=== PATIENT | female | born 1990 | race Caucasian/White ===

== ENCOUNTER 2025-07-16 16:42 | Emergency (ER) | payer MEDICAID ==
[~2025-07-16] VITALS: Ht 152.4 cm; Wt 91.0 kg
[2025-07-16 16:52] VITALS: O2SAT 99
[2025-07-16 17:37] LABS: BASOPHILS % 0.3 % (0.0-2.0); EOSINOPHILS % 0.0 % (0.0-5.0); HEMATOCRIT. 41.5 % (36.0-48.0); HEMOGLOBIN. 13.3 g/dL (12.0-16.0); LYMPHOCYTES % 8.7 % (20.0-50.0); MEAN PLATELET VOLUME 7.2 fl (7.4-10.4); MONOCYTES % 4.2 % (2.0-8.0); NEUTROPHILS % 86.8 % (40.0-76.0); PLATELET 435 x1000/uL (130-400); RED BLOOD CELL COUNT 6.11 mill/uL (4.2-5.4); RED CELL DISTRIBUTION WIDTH 17.1 % (11.6-14.6)
[2025-07-16 17:38] LABS: ADD RBC MORPHOLOGY YES
[2025-07-16 17:49] LABS: CREATININE 0.6 mg/dL (0.6-1.0); UREA NITROGEN BLOOD 7 mg/dL (9-23)
[2025-07-16 17:50] LABS: TROPONIN I HIGH SENSITIVITY < 4 ng/L (3.0-34)
[2025-07-16 17:51] LABS: ASPARTATE AMINOTRANSFERASE 215 IU/L (<34); BILIRUBIN DIRECT 0.8 mg/dL (<=3.0); BILIRUBIN TOTAL 2.0 mg/dL (0.1-1.0); PROTEIN TOTAL 7.5 g/dL (6.0-8.3)
[2025-07-16 17:58] LABS: HCG SCREEN NEGATIVE
[2025-07-16 18:12] LABS: CLARITY URINE CLEAR (CLEAR); COLOR URINE DARK YELLOW (YELLOW); GLUCOSE URINE NEGATIVE (NEGATIVE); KETONES URINE NEGATIVE (NEGATIVE); LEUKOCYTE ESTERASE URINE 1+ (NEGATIVE); NITRITE URINE NEGATIVE (NEGATIVE); OCCULT BLOOD URINE 3+ (NEGATIVE); PH URINE 7.0 (4.5-8.0); PROTEIN URINE TRACE (NEGATIVE); SPECIFIC GRAVITY URINE 1.020 (1.005-1.030); UROBILINOGEN URINE 1.0 E.U./dL (0.2-1.0)
[2025-07-16] MEDS: SODIUM CHLORIDE 0.9% 1,000 ML IV ONE (18:14)
[2025-07-16] MEDS: ONDANSETRON HCL 4MG/2ML INJ IV ONE (18:15)
[2025-07-16] MEDS: KETOROLAC 15MG/ML VIAL IV ONE (18:15)
[2025-07-16 18:45] LABS: SQUAMOUS EPITHELIAL CELL URINE 3+ /lpf (RARE/1+)
[2025-07-16 18:46] LABS: BACTERIA URINE 1+; RBC URINE 25-50 /hpf (0-2); WBC URINE 25-50 /hpf (0-2)
[2025-07-16 19:35] LABS: TROPONIN I HIGH SENSITIVITY < 4 ng/L (3.0-34)
[2025-07-16] MEDS: METOCLOPRAMIDE HCL 10MG/2ML VIAL IV ONE (20:11)
[2025-07-16] MEDS: ACETAMINOPHEN 325MG TABLET PO ONE (20:11)
[2025-07-16 21:43] LABS: PLATELET ESTIMATE INCREASED
[2025-07-17] MEDS ORDERED: CEFP200T13 MT (00:37)
[2025-07-17 00:53] VITALS: BP 112/66; PULSE 79; RESP 18; TEMP 36.9; O2SAT 98
== END 2025-07-17 00:54 | disposition home or self-care (01) ==
LOC: ER 16:42
DX: K80.20 Calculus of gallbladder without cholecystitis without obstruction (principal); N39.0 Urinary tract infection, site not specified; R51.9 Headache, unspecified; R11.2 Nausea with vomiting, unspecified; J45.909 Unspecified asthma, uncomplicated
CPT/HCPCS: 99285; 96374; 96361; 70450; 76705; 96375; 80076; 80048; 81003; 81025; 84703; 83690; 85025; 87086; 84484; 36415; 93005; J1885; J2765; J2405; J7030

== ENCOUNTER 2025-08-11 01:33 | Emergency (ER) | payer MEDICAID ==
[~2025-08-11] VITALS: Ht 147.3 cm; Wt 94.9 kg
[~2025-08-11 01:33] MED LIST: CEFP200T13 MT
[2025-08-11 01:58] VITALS: O2SAT 99
[2025-08-11] MEDS: ACETAMINOPHEN 500MG TABLET PO ONE (02:30)
[2025-08-11] MEDS: ONDANSETRON 4MG ODT PO ONE (02:30)
[2025-08-11 03:46] LABS: BASOPHILS % 0.2 % (0.0-2.0); EOSINOPHILS % 0.9 % (0.0-5.0); HEMATOCRIT. 42.1 % (36.0-48.0); HEMOGLOBIN. 13.5 g/dL (12.0-16.0); LYMPHOCYTES % 9.5 % (20.0-50.0); MEAN PLATELET VOLUME 7.1 fl (7.4-10.4); MONOCYTES % 4.5 % (2.0-8.0); NEUTROPHILS % 84.9 % (40.0-76.0); PLATELET 417 x1000/uL (130-400); RED BLOOD CELL COUNT 6.24 mill/uL (4.2-5.4); RED CELL DISTRIBUTION WIDTH 17.6 % (11.6-14.6)
[2025-08-11 03:49] LABS: ADD RBC MORPHOLOGY YES
[2025-08-11 03:54] LABS: HCG SCREEN NEGATIVE
[2025-08-11 03:59] LABS: PLATELET ESTIMATE INCREASED
[2025-08-11 04:05] LABS: CREATININE 0.6 mg/dL (0.6-1.0)
[2025-08-11 04:06] LABS: PROTEIN TOTAL 7.6 g/dL (6.0-8.3); UREA NITROGEN BLOOD 11 mg/dL (9-23)
[2025-08-11 04:07] LABS: ASPARTATE AMINOTRANSFERASE 26 IU/L (<34); BILIRUBIN DIRECT 0.4 mg/dL (<=3.0)
[2025-08-11 04:08] LABS: BILIRUBIN TOTAL 1.4 mg/dL (0.1-1.0)
[2025-08-11] MEDS ORDERED: PIPERACILLIN/TAZO 3.375G/50ML 50 ML IV ONE (04:30)
[2025-08-11] MEDS: SODIUM CHLORIDE 0.9% (SEPSIS BOLUS) IV ONE (04:42)
[2025-08-11] MEDS ORDERED: ACET-2708 MT (04:49)
[2025-08-11] MEDS ORDERED: ONDA4TAB50 MT (04:49)
[2025-08-11] MEDS ORDERED: IMOD MT (05:31)
[2025-08-11 07:24] VITALS: BP 135/74; PULSE 99; RESP 20; TEMP 36.7; O2SAT 100
== END 2025-08-11 07:24 | disposition home or self-care (01) ==
LOC: ER 01:33 → CANBEDREQ 07:15 → ER 07:24
DX: K76.0 Fatty (change of) liver, not elsewhere classified (principal); R11.2 Nausea with vomiting, unspecified
CPT/HCPCS: 99291; 76705; 80076; 80048; 84703; 83605; 83690; 85025; 87040; 36415; 84145; 71045; Q0162; J7030